=== PATIENT | female | born 1965 | race African-American/Black ===

== ENCOUNTER 2017-06-30 17:51 | Inpatient (IN) | payer SELFPAY ==
[~2017-06-30] VITALS: Ht 165.1 cm; Wt 118.8 kg
[2017-06-30] MEDS ORDERED: METHYLPREDNISOLONE SOD SUCC 125 MG/2 ML VIAL IV STA (18:23)
[2017-06-30] MEDS ORDERED: IPRATROPIUM BROMIDE (0.02%) 0.5MG/2.5ML NEB HHN STA (18:23)
[2017-06-30] MEDS ORDERED: ALBUTEROL (0.083%) 2.5MG/3ML NEB HHN STA (18:23)
[2017-06-30] MEDS ORDERED: ASPIRIN 81MG TABLET PO ONE (18:30)
[2017-06-30] MEDS ORDERED: LABETALOL HCL 20MG/4ML CARPUJECT IV ONE (18:30)
[2017-06-30] MEDS ORDERED: NITROGLYCERIN OINT 1GM/INCH UDPKT TD ONE (18:30)
[2017-06-30] MEDS ORDERED: MAGNESIUM 2 G PREMIX 50 ML IV ONE (18:30)
[2017-06-30 18:57] LABS: BASOPHILS % 0.6 % (0.0-2.0); EOSINOPHILS % 1.7 % (0.0-5.0); HEMATOCRIT. 37.4 % (36.0-48.0); HEMOGLOBIN. 12.2 g/dL (12.0-16.0); LYMPHOCYTES % 35.2 % (20.0-50.0); MEAN CORPUSCULAR HEMOGLOBIN 28.6 pg (28.0-32.0); MEAN CORPUSCULAR VOLUME 87.9 fL (81.0-99.0); MEAN PLATELET VOLUME 10.2 fl (7.4-10.4); MONOCYTES % 5.7 % (2.0-8.0); NEUTROPHILS % 56.8 % (40.0-76.0); PLATELET 292 x1000/uL (130-400); RED BLOOD CELL COUNT 4.26 mill/uL (4.2-5.4)
[2017-06-30 19:02] LABS: PROTHROMBIN TIME 10.7 sec (9.4-11.6)
[2017-06-30 19:03] LABS: CHLORIDE 109 mEq/L (98-107)
[2017-06-30 19:05] LABS: CARBON DIOXIDE 22 mEq/L (21-32)
[2017-06-30 19:11] LABS: ETHANOL BLOOD < 10 mg/dL
[2017-06-30] MEDS ORDERED: LEVOFLOXACIN 750MG PREMIX 150 ML IV ONE (19:30)
[2017-06-30] MEDS ORDERED: FUROSEMIDE 40MG/4ML VIAL IV ONE (19:30)
[2017-06-30] MEDS ORDERED: CLOPIDOGREL 75MG TABLET PO ONE (19:30)
[2017-06-30 19:41] LABS: BG BASE EXCESS -3.1 mmol/L (-2.0-2.0); BG CARBOXYHEMOGLOBIN 2.4 % (0.5-1.5); BG DEOXYHEMOGLOBIN 5.7 % (0.0-5.0); BG FRACTION INSPIRED OXYGEN 21; BG HCO3 ACT 19.9 mmol/L (22.0-26.0); BG METHEMOGLOBIN 0.4 % (0.0-1.5); BG OXYGEN SATURATION 94.1 % (92.0-98.5); BG OXYHEMOGLOBIN 91.5 % (94.0-97.0); BG PCO2 29.8 mmHg (35.0-45.0); BG PH 7.443 (7.350-7.450); BG PO2 73.2 mmHg (75.0-100.0); BG SAMPLE SITE RIGHT RADIAL; BG TOTAL HEMOGLOBIN 12.7 g/dL (12.0-18.0); BG VENT MODE ROOM AIR
[2017-06-30] MEDS ORDERED: LABETALOL 5MG/ML SYR 20 MG/4 ML SYRINGE IV NR (20:00)
[2017-06-30 22:15] VITALS: BP 133/100
[2017-06-30 22:22] VITALS: BP 133/100
[2017-06-30] MEDS ORDERED: HYDR25TA PO (22:59)
[2017-06-30] MEDS ORDERED: ACETAMINOPHEN 325MG TABLET PO PRN (23:15)
[2017-06-30] MEDS ORDERED: FUROSEMIDE 40MG/4ML VIAL IV SCH (23:15)
[2017-06-30] MEDS ORDERED: HYDROCODONE/ACETAMINOPHEN 5/325MG TABLET PO PRN (23:15)
[2017-06-30] MEDS ORDERED: IPRATROPIUM/ALBUTEROL 0.5-3(2.5)MG/3ML NEB INH PRN (23:15)
[2017-06-30] MEDS ORDERED: MAGNESIUM/ALUMINUM HYDROXIDE/SIMETHICONE 30ML UDC PO PRN (23:15)
[2017-06-30] MEDS ORDERED: MORPHINE SULFATE 2 MG/ML CPJ (NOT FOR IM USE) IV PRN (23:15)
[2017-06-30] MEDS ORDERED: DOCUSATE SODIUM 100MG CAPSULE PO PRN (23:15)
[2017-06-30] MEDS ORDERED: CLONIDINE 0.1MG TABLET PO PRN (23:15)
[2017-06-30] MEDS ORDERED: ONDANSETRON HCL 4MG/2ML VIAL IV PRN (23:15)
[2017-06-30] MEDS: METOPROLOL TARTRATE 25MG TABLET PO SCH (23:27)
[2017-06-30 23:53] LABS: CARBON DIOXIDE 18 mEq/L (21-32); CHLORIDE 109 mEq/L (98-107)
[2017-07-01] VITALS (10 sets, daily range): BP systolic 126–150; BP diastolic 76–104
[2017-07-01] MEDS: ENOXAPARIN 120MG/0.8ML SYR SUBCUT SCH ×2 (00:28→12:46)
[2017-07-01 05:48] LABS: BASOPHILS % 0.1 % (0.0-2.0); HEMATOCRIT. 37.2 % (36.0-48.0); HEMOGLOBIN. 12.4 g/dL (12.0-16.0); LYMPHOCYTES % 9.9 % (20.0-50.0); MEAN CORPUSCULAR HEMOGLOBIN 28.9 pg (28.0-32.0); MEAN CORPUSCULAR VOLUME 86.7 fL (81.0-99.0); MEAN PLATELET VOLUME 10.8 fl (7.4-10.4); MONOCYTES % 1.1 % (2.0-8.0); NEUTROPHILS % 88.9 % (40.0-76.0); PLATELET 278 x1000/uL (130-400); RED BLOOD CELL COUNT 4.29 mill/uL (4.2-5.4); RED CELL DISTRIBUTION WIDTH 17.2 % (11.6-14.6)
[2017-07-01] MEDS ORDERED: REGADENOSON 0.4 MG/5 ML IV ONE (06:30)
[2017-07-01 07:08] LABS: CREATINE KINASE MB FRACTION 1.5 ng/mL (0.5-3.6)
[2017-07-01] MEDS: METOPROLOL TARTRATE 25MG TABLET PO SCH (08:27)
[2017-07-01] MEDS ORDERED: FUROSEMIDE 40MG/4ML VIAL IVP SCH (09:00)
[2017-07-01] MEDS ORDERED: ASPIRIN 81MG EC TABLET PO SCH (09:00)
[2017-07-01] MEDS ORDERED: AMLODIPINE 5MG TABLET PO SCH (09:00)
[2017-07-01] MEDS ORDERED: LISINOPRIL 2.5MG TABLET PO SCH (09:00)
[2017-07-01 16:30] LABS: CREATINE KINASE MB FRACTION 1.6 ng/mL (0.5-3.6)
[2017-07-01 16:41] LABS: TROPONIN I 1.9 ng/mL (0.00-0.04)
== END 2017-07-01 18:45 | disposition home or self-care (01) | DRG 190 ==
LOC: EDBEDREQTM 19:51 → EDBEDREQ 19:51 → EDBEDREQSVC 19:53 → ENRESERV 19:56 → ER 20:52 → 5EST 23:02
PROVIDERS: ADMIT Internal Medicine; ATTEND Internal Medicine
DX: I21.4 Non-ST elevation (NSTEMI) myocardial infarction (principal); I50.43 Acute on chronic combined systolic (congestive) and diastolic (congestive) heart failure; I11.0 Hypertensive heart disease with heart failure; E66.01 Morbid (severe) obesity due to excess calories; F17.210 Nicotine dependence, cigarettes, uncomplicated; Z79.82 Long term (current) use of aspirin; Z79.899 Other long term (current) drug therapy; Z86.73 Personal history of transient ischemic attack (TIA), and cerebral infarction without residual deficits; Z72.89 Other problems related to lifestyle; Z68.41 Body mass index [BMI] 40.0-44.9, adult
CPT/HCPCS: 36415; 36600; 71045; 80048; 80053; 80061; 82375; 82550; 82553; 82805; 83605; 83690; 83735; 83880; 84443; 84484; 85025; 85610; 87040; 87804; 93005; 93306; 93970; 96365; 96375; 99291; G0482; J1650; J1940; J1956; J2930; J3475; J3490; J7611; J7620